=== PATIENT | female | born 1935 | race Caucasian/White ===

== ENCOUNTER 2017-01-01 00:07 | Inpatient (IN) | payer BC, MEDICARE ==
[2017-01-01] MEDS ORDERED: NOREPINEPHRINE 4 MG in SODIUM CHLORIDE 0.9% 250 ML IV SCH (00:30)
[2017-01-01] MEDS ORDERED: SODIUM CHLORIDE 0.9% 2,000 ML IV STA (00:31)
[2017-01-01] MEDS ORDERED: SODIUM CHLORIDE 0.9% 1,000 ML IV STA ×2 (00:32→01:42)
[2017-01-01 00:34] LABS: Glucose,Whole Blood 140 mg/dL (75-99)
[2017-01-01] MEDS ORDERED: ROCURONIUM BROMIDE 10 MG/ML 10 ML VIAL IV STA (00:34)
[2017-01-01] MEDS ORDERED: MIDAZOLAM (PF) 1 MG/ML 5 ML VIAL IV STA (00:34)
[2017-01-01 00:53] LABS: CH 27.2; HCT 42.3 % (34.0-46.0); HDW 3.36; HGB 13.9 gm/dL (11.4-16.0); Hypochromasia Moderate; MCH 29.1 pg (25.0-35.0); MCHC 32.9 g/dL (31.0-37.0); MCV 88.6 fL (80.0-100.0); Mean Platelet Volume 7.9; RBC 4.78 m/uL (3.80-5.40); RDW 14.1 % (11.5-15.5); WBC (Perox) 11.31
[2017-01-01 00:57] LABS: Calcium 7.4 mg/dL (8.4-10.2); Potassium 5.8 mmol/L (3.5-5.1); Total Bilirubin 0.6 mg/dL (0.2-1.3); Total Protein 5.5 g/dL (6.3-8.2)
[2017-01-01 00:58] LABS: Partial Thromboplastin Time 41.9 sec (22.0-30.0)
[2017-01-01 01:08] LABS: Prothrombin Time >130.0 sec (9.0-12.0)
[2017-01-01 01:11] LABS: INR >10.0 (<1.1)
[2017-01-01 01:17] LABS: Appearance,Urine Clear (Clear); Bilirubin,Urine Negative (Negative); Glucose,Urine (UA) Negative (Negative); Ketones,Urine Negative (Negative); Leukocyte Esterase,Urine Negative (Negative); Mucus,Urine Rare /hpf; Nitrite,Urine Negative (Negative); PH, Urine 5.5 (5.0-8.0); Particle Count 2856; Protein,Urine 1+ (Negative); RBC,Urine 1 /hpf (0-5); Specific Gravity,Urine 1.018 (1.001-1.035); UA Billing (MACRO vs. MICRO) MICRO; Urobilinogen,Urine <2.0 mg/dL (<2.0); WBC,Urine <1 /hpf (0-5)
[2017-01-01 01:18] LABS: Add Differential Manual Differential
[2017-01-01 01:22] LABS: Manual Review Performed; Nucleated Red Blood Cells 0 /100 WBC (0-0); Total Cells Counted 200
[2017-01-01 01:23] LABS: Crenated RBC Present; Toxic Granulation Present
--- NOTE | 2017-01-01 01:25 | XR ---
EXAM: XR Chest, 1 View. CLINICAL HISTORY: Reason: altered mental status TECHNIQUE: Frontal view of the chest. COMPARISON: No relevant prior studies available. FINDINGS: Lungs: There is pulmonary vascular congestion. Asymmetric left perihilar and left lower lobe infiltrate may reflect pulmonary edema or possible pneumonia. Pleural space: No evidence of pneumothorax. No significant pleural effusion. Heart: Heart size is within normal limits. Mediastinum: Unremarkable. Bones/joints: Old right lower rib fractures. Tubes, lines and devices: Endotracheal tube has its tip just above level of tahir. Left subclavian central venous catheter extends to region of right atrium. Additional line projects over lower cardiac silhouette extending superiorly from abdomen which may reflect overlying lead or possible line extending into the right atrium from inferior vena caval approach. IMPRESSION: Multiple lines and tubes as described in body of report. Pulmonary vascular congestion Left perihilar and lower lobe infiltrates may reflect developing pulmonary edema or possible pneumonia.
[2017-01-01] MEDS ORDERED: AZTREONAM 2 GM in SODIUM CHLORIDE 0.9% 100 ML IVPB STA (01:32)
[2017-01-01] MEDS ORDERED: LEVOFLOXACIN 750MG-D5W PMX 750 MG in DEXTROSE/WATER 1 150ML.BAG IVPB STA (01:32)
[2017-01-01 01:43] LABS: Troponin I 0.882 ng/mL (0.000-0.034)
[2017-01-01] MEDS ORDERED: PHYTONADIONE 2 MG in SODIUM CHLORIDE 0.9% 50 ML IVPB STA (01:53)
[2017-01-01 01:55] LABS: ABG Base Excess -15.4 mmol/L; ABG HCO3 13 mmol/L (21-25); ABG PCO2 47 mmHg (35-45); ABG PH 7.07 (7.35-7.45); ABG PO2 290 mmHg (83-108); ABG TCO2 14 mmol/L (19-24)
--- NOTE | 2017-01-01 02:47 | CT ---
EXAM: CT Head Without Intravenous Contrast. CLINICAL HISTORY: Reason: altered mental status TECHNIQUE: Axial computed tomography images of the head/brain without intravenous contrast. CTDI is 57.4 mGy and DLP is 1098.8 mGy-cm This CT exam was performed using one or more of the following dose reduction techniques: automated exposure control, adjustment of the mA and/or kV according to patient size, and/or use of iterative reconstruction technique. COMPARISON: No relevant prior studies available. FINDINGS: Brain: Generalized cerebral atrophy. Prominent chronic white matter ischemic changes. No evidence of acute cerebral infarction or intracranial hemorrhage. No abnormal extra-axial collections identified. Ventricles: Ventricles are of normal configuration without mass effect or midline shift. Bones/joints: No evidence of skull fracture Sinuses: Mild bilateral ethmoid sinus mucosal thickening and small amount of fluid in the left ethmoid sinus. Imaged sinuses are otherwise unremarkable. Mastoid air cells: Unremarkable as visualized. No mastoid effusion. Nasopharynx: There is intermediate to low density with scattered gas collections filling the posterior nasopharynx IMPRESSION: Cerebral atrophy and prominent chronic white matter ischemic changes. No evidence of acute intracranial abnormality. Mild bilateral ethmoid sinus disease. Heterogeneous density and scattered gas locules filling the posterior nasopharynx which is nonspecific and may reflect abundant retained secretions. Clinical correlation recommended.
--- NOTE | 2017-01-01 03:44 | CT ---
EXAM: CT Abdomen and Pelvis Without Intravenous Contrast. CLINICAL HISTORY: Reason: abnormal labs TECHNIQUE: Axial computed tomography images of the abdomen and pelvis without intravenous contrast. CTDI is 13.9 mGy and DLP is 658.3 mGy-cm This CT exam was performed using one or more of the following dose reduction techniques: automated exposure control, adjustment of the mA and/or kV according to patient size, and/or use of iterative reconstruction technique. COMPARISON: No relevant prior studies available. FINDINGS: Artifacts: CT is somewhat limited due to metallic/streak artifact and lack of oral and IV contrast enhancement. Lower thorax: Imaged lower thorax demonstrates findings suggestive of previous right mastectomy. There is minimal right pleural effusion. There is consolidative opacity and partial volume loss involving left lower lobe with associated small left pleural effusion. Mild inferior lingular subsegmental atelectasis or fibrotic scarring. ABDOMEN: Liver: Liver is of normal size. No definite focal hepatic abnormalities identified. Gallbladder and bile ducts: There is intermediate density within the gallbladder which may reflect gallbladder sludge. Suggestion of gallbladder wall thickening or small amount of pericholecystic fluid which may reflect cholecystitis. Correlation with gallbladder ultrasound recommended. No ductal dilation. Pancreas: Pancreas appears grossly normal, but is suboptimally visualized. Spleen: Unremarkable. No splenomegaly. Adrenals: No definite adrenal masses. Kidneys and ureters: No evidence of renal calculi or hydronephrosis. Stomach and bowel: Moderate dilatation of proximal small bowel loop in the left upper quadrant which is nonspecific and could reflect focal ileus. Early or partial small bowel obstruction are differential possibilities. Small bowel is otherwise of normal caliber. There is moderate gaseous distention of the right colon with no definite evidence of colonic obstruction. Note is made of a rectal catheter within the rectum. Scattered diverticula arise from the sigmoid without evidence of diverticulitis. Sigmoid colon is nondistended limiting colonic evaluation. Appendix: Appendix not identified. No definite evidence of appendicitis. PELVIS: Bladder: In the bladder is decompressed with indwelling bladder catheter. Reproductive: Unremarkable as visualized. ABDOMEN and PELVIS: Intraperitoneal space: Unremarkable. No free air. No significant fluid collection. Bones/joints: Severe L1 vertebral compression fracture which is of indeterminate age. Lower thoracic and lumbar spine degenerative changes. Soft tissues: Prominent subcutaneous soft tissue edematous changes involving the left buttocks which may reflect inflammatory changes/cellulitis. Vasculature: No evidence of abdominal aortic aneurysm. Lymph nodes: No definite evidence of lymphadenopathy. Tubes, lines and devices: Nasogastric tube extends to region of gastric body. IMPRESSION: Left lower lobe consolidative pulmonary opacity and partial volume loss which may reflect pneumonia, but cannot exclude postobstructive process. CT chest may be considered for further evaluation. Minimal right and small left pleural effusions. Evidence of gallbladder sludge with suggestion of gallbladder wall thickening or small amount of pericholecystic fluid raising possibility of cholecystitis. Correlation with gallbladder ultrasound recommended. Moderate dilatation of proximal small bowel loop in the left upper quadrant which may reflect focal ileus. Early or partial small bowel obstruction are differential considerations. Moderate distention of right colon with no definite evidence of colonic obstruction. Prominent subcutaneous soft tissue edematous changes involving left buttocks which may reflect cellulitis. Severe L1 vertebral compression fracture.
--- NOTE | 2017-01-01 04:48 | ED ---
Altered Mental Status HPI - General Chief Complaint: Altered Mental Status Stated Complaint: unresponsive Source: EMS Mode of arrival: EMS Limitations: altered mental status, physical limitation - History of Present Illness Initial Comments: This patient is an 81-year-old woman brought to be evaluated by EMS. History is only available from EMS as the patient is unresponsive. It is reported that the patient had not spoken with her family in about 3-4 days. Family phoned the police department to see if the patient could be checked. The airline pilot/first officer who went to the site found the patient see toilet, leaned over the next to it onto the bathtub. The patient was reportedly breathing but not responsive. EMS arrived and they transported the patient here. They have not received any response from the patient. On-site they found the patient to be hypotensive, bradycardic, tachypneic. They placed patient on a nasal cannula oxygen, attempted IVs but unsuccessful and started an IO line. As the patient was not responding they also placed external pacer pads. On arrival the patient is unchanged. MD Complaint: altered mental status, decreased responsiveness -: unknown Severity: severe Consistency of Symptoms: unknown Context: unknown Treatments Prior to Arrival: IV fluid, oxygen - Related Data Home Medications Medication Instructions Recorded Confirmed Diazepam [Valium] 5 mg PO HS PRN 06/24/14 01/01/17 Atenolol [Atenolol] 25 mg PO DAILY 01/01/17 01/01/17 Flecainide Acetate [Flecainide 50 mg PO Q12H 01/01/17 01/01/17 Acetate] Omeprazole 20 mg PO DAILY 01/01/17 01/01/17 Warfarin Sodium [Warfarin Sodium] 2.5 mg PO DAILY 01/01/17 01/01/17 metroNIDAZOLE [Flagyl] 500 mg PO TID 01/01/17 01/01/17 Allergies Allergy/AdvReac Type Severity Reaction Status Date / Time aspirin Allergy Abdominal Verified 01/01/17 00:23 Pain Penicillins Allergy Rash/Hives Verified 01/01/17 00:23 Review of Systems ROS Statement: Those systems with pertinent positive or pertinent negative responses have been documented in the HPI. ROS Other: All systems not noted in ROS Statement are negative. Limitations: ROS unobtainable due to patients medical condition Past Medical History Past Medical History: Cancer, GERD/Reflux, Hypertension, Mitral Valve Prolapse ( MVP) Additional Past Medical History / Comment(s): POLIO AGE 15, BREAST CANCER, VARICOSE VEINS History of Any Multi-Drug Resistant Organisms: None Reported Past Surgical History: Adenoidectomy, Breast Surgery, Hysterectomy, Tonsillectomy Past Anesthesia/Blood Transfusion Reactions: Motion Sickness, Postoperative Nausea & Vomiting (PONV) Past Psychological History: No Psychological Hx Reported Smoking Status: Never smoker Past Alcohol Use History: Unable to Obtain Past Drug Use History: Unable to Obtain - Past Family History Mother Family Medical History: Cancer Additional Family Medical History / Comment(s): COLON CANCER Brother(s) Family Medical History: Deep Vein Thrombosis (DVT) Additional Family Medical History / Comment(s): PULMONARY EMBOLISM General Exam Limitations: physical limitation General appearance: obtunded, in distress Head exam: Present: atraumatic, normocephalic, normal inspection Eye exam: Present: other (There is corneal clouding) Pupils: Present: miosis ENT exam: Present: mucous membranes dry, other (Jaw was clenched) Neck exam: Present: other (No evidence of trauma. No step-off or deformity). Absent: tenderness, meningismus Respiratory exam: Present: respiratory distress, rhonchi, other (The patient is making faint grunting respirations. Rate is tachypneic. Inspection of the chest wall reveals old mastectomy scar.). Absent: decreased breath sounds, prolonged expiratory Cardiovascular Exam: Present: bradycardia, other (Barely audible cardiac sounds) . Absent: systolic murmur, diastolic murmur, rubs, gallop GI/Abdominal exam: Present: soft. Absent: distended, tenderness, guarding, rebound, mass Extremities exam: Present: other (There is an intraosseous line the left proximal tibia). Absent: tenderness, normal capillary refill (Delayed cap refill), pedal edema Back exam: Present: normal inspection Neurological exam: Present: altered, other (GCS is 4. (E=1, V=2, M=1) there were no corneal reflex or other cranial nerve reflexes on arrival. No deep tendon reflexes.). Absent: alert Skin exam: Present: pallor, other (Skin is cool and mottled. There are stage III decubitus ulcers the back of the patient's legs consistent with being seated on the commode for prolonged period). Absent: normal color Course Vital Signs 01/01/17 01/01/17 01/01/17 00:09 00:10 00:25 Temperature 80 F L Pulse Rate 67 70 Respiratory 12 12 12 Rate Blood Pressure O2 Sat by Pulse Oximetry 01/01/17 01/01/17 01/01/17 00:36 00:37 00:42 Temperature 80 F L Pulse Rate 70 46 L 70 Respiratory 12 14 14 Rate Blood Pressure 81/44 178/70 O2 Sat by Pulse 97 99 Oximetry 01/01/17 01/01/17 01/01/17 00:50 00:53 01:02 Temperature 80.1 F L Pulse Rate 50 L 50 L 70 Respiratory 14 14 14 Rate Blood Pressure 72/50 176/68 172/63 O2 Sat by Pulse 100 99 95 Oximetry 01/01/17 01/01/17 01/01/17 01:09 01:17 01:28 Temperature Pulse Rate 70 70 68 Respiratory 14 14 14 Rate Blood Pressure 193/76 126/51 92/42 O2 Sat by Pulse 99 97 99 Oximetry 01/01/17 01/01/17 01/01/17 01:37 01:40 01:49 Temperature 81.1 F L Pulse Rate 70 70 72 Respiratory 14 14 14 Rate Blood Pressure 74/30 74/30 69/32 O2 Sat by Pulse 98 98 99 Oximetry 01/01/17 01/01/17 01/01/17 01:50 01:54 01:59 Temperature 82 F L 83.0 F L 83.0 F L Pulse Rate 73 72 74 Respiratory 14 14 14 Rate Blood Pressure 69/32 78/40 95/53 O2 Sat by Pulse 100 99 99 Oximetry 01/01/17 01/01/17 01/01/17 02:07 02:09 02:20 Temperature 83.1 F L 83.4 F L 86.2 F L Pulse Rate 77 78 80 Respiratory 14 14 14 Rate Blood Pressure 99/55 103/54 104/51 O2 Sat by Pulse 99 99 98 Oximetry 01/01/17 01/01/17 01/01/17 02:42 02:54 03:12 Temperature 85 F L 86 F L 87 F L Pulse Rate 82 82 84 Respiratory 14 14 14 Rate Blood Pressure 93/65 105/46 96/46 O2 Sat by Pulse 99 99 98 Oximetry 01/01/17 01/01/17 01/01/17 03:27 03:36 03:50 Temperature 87.6 F L 87.9 F L Pulse Rate 59 L 61 62 Respiratory 14 14 14 Rate Blood Pressure 105/45 96/42 83/39 O2 Sat by Pulse 98 98 97 Oximetry 01/01/17 01/01/17 01/01/17 04:14 04:21 04:40 Temperature 89.6 F L 90.4 F L Pulse Rate 64 64 67 Respiratory 14 14 14 Rate Blood Pressure 74/37 80/35 79/37 O2 Sat by Pulse 97 97 97 Oximetry 01/01/17 05:09 Temperature 91.1 F L Pulse Rate 69 Respiratory 14 Rate Blood Pressure 90/41 O2 Sat by Pulse 97 Oximetry Procedures - Central Line Placement Left SC Consent Obtained: emergent situation Time Out Performed: Yes Patient Placed on Monitor/Pulse Ox: Yes Prep: mask, gown, gloves Central Line Prep: sterile drapes applied Local Anesthesia Used: Lidocaine 1% Central Line Lumen Inserted: triple Bloods Obtained for Lab: Yes Central Line Position: good blood return, all ports aspirated, flushed, capped, sutured in place with 2-0 silk Dressing Applied: Tegaderm Post Procedure X-Ray: tip of catheter in good position Patient Tolerated Procedure: no complications Complications: none - Intubation Sedative: Versed Paralytic: Rocuronium Laryngoscope: Tomer Size: 3 ET Tube Size: 8 Tube Placement Confirmation: visualized tube passing through cords, equal breath sounds bilaterally, no breath sounds over epigastrium, confirmation by capnometry Patient Tolerated Procedure: no complications Intubation Complications: none - Sepsis Sepsis Focused Exam #1 Sepsis Focused Exam Date: 01/01/17 Sepsis Focused Exam Time: 03:10 Capillary Refill: < 2 Seconds: Fingers, > 2 Seconds: Toes Peripheral Pulses: Weak: Radial (R), Radial (L) Skin Color: Normal for Patient Respiratory Exam: rhonchi Cardiovascular Exam: regular rate, normal heart sounds Medical Decision Making - Medical Decision Making This patient is an 81-year-old woman brought in by EMS after being found unresponsive. On arrival the patient is bradycardic, requiring pacing and hypotensive as well as in respiratory failure. The patient's jaw was tightly clenched and we are not able to intubate. To facilitate emergency resuscitation , as well as for the possibility of administering multiple medications including pressors started a central line in the left subclavian area, see the note. This procedure went without complication. I was also able to draw blood for labs. Patient was administered medication for RSI and then intubated for respiratory failure. Please see the note. This procedure went without complication. Fluid resuscitation continued, pressors added to support her pressure, and external pacing continued. IV antibiotics for presumed sepsis ordered. As the patient's labs started to come back, discussed the case with the admitting physician and with the external grinder tender on-call and there treatment recommendations are incorporated. The patient is given vitamin K for the INR greater than 10. At this point there is no evidence of bleeding. The patient did go for CT of the brain, as well as the abdomen and pelvis. - Lab Data Result diagrams: 01/01/17 04:55 01/01/17 04:55 Lab Results 01/01/17 01/01/17 01/01/17 Range/Units 00:14 00:20 00:20 WBC 11.0 H (3.8-10.6) k/uL RBC 4.78 (3.80-5.40) m/uL Hgb 13.9 (11.4-16.0) gm/dL Hct 42.3 (34.0-46.0) % MCV 88.6 (80.0-100.0) fL MCH 29.1 (25.0-35.0) pg MCHC 32.9 (31.0-37.0) g/dL RDW 14.1 (11.5-15.5) % Plt Count 293 (150-450) k/uL Neutrophils % (Manual) 77.0 % Band Neutrophils % 16.0 % Lymphocytes % (Manual) 5.0 % Monocytes % (Manual) 2.0 % Neutrophils # (Manual) 10.2 H (1.3-7.7) k/uL Lymphocytes # (Manual) 0.6 L (1.0-4.8) k/uL Monocytes # (Manual) 0.2 (0-1.0) k/uL Nucleated RBCs 0 (0-0) /100 WBC Manual Slide Review Performed Toxic Granulation Present Hypochromasia Moderate Poikilocytosis (manual Present Crenated Cell Present PT (9.0-12.0) sec INR (<1.1) APTT (22.0-30.0) sec Sample Site ABG pH (7.35-7.45) ABG pCO2 (35-45) mmHg ABG pO2 (83-108) mmHg ABG HCO3 (21-25) mmol/L ABG Total CO2 (19-24) mmol/L ABG O2 Saturation (94-97) % ABG Base Excess mmol/L FiO2 % Sodium (137-145) mmol/L Potassium (3.5-5.1) mmol/L Chloride (98-107) mmol/L Carbon Dioxide (22-30) mmol/L Anion Gap mmol/L BUN (7-17) mg/dL Creatinine (0.52-1.04) mg/dL Est GFR (MDRD) Af Amer (>60 ml/min/1.73 sqM) Est GFR (MDRD) Non-Af (>60 ml/min/1.73 sqM) Glucose (74-99) mg/dL POC Glucose (mg/dL) 140 H (75-99) mg/dL POC Glu Matchbook Assembler ID Jonhitlolita Cecille Plasma Lactic Acid [place] (0.7-2.0) mmol/L Calcium (8.4-10.2) mg/dL Total Bilirubin (0.2-1.3) mg/dL AST (14-36) U/L ALT (9-52) U/L Alkaline Phosphatase (38-126) U/L Ammonia (<30) umol/L Total Creatine Kinase 59098 H (30-135) U/L CK-MB (CK-2) 316.0 H* (0.0-2.4) ng/mL CK-MB (CK-2) Rel Index Troponin I 0.882 H* (0.000-0.034) ng/mL Total Protein (6.3-8.2) g/dL Albumin (3.5-5.0) g/dL Urine Color Urine Appearance (Clear) Urine pH (5.0-8.0) Ur Specific [place] (1.001-1.035) Urine Protein (Negative) Urine Glucose (UA) (Negative) Urine Ketones (Negative) Urine Blood (Negative) Urine Nitrite (Negative) Urine Bilirubin (Negative) Urine Urobilinogen (<2.0) mg/dL Ur Leukocyte Esterase (Negative) Urine RBC (0-5) /hpf Urine WBC (0-5) /hpf Urine Mucus (None) /hpf Urine Opiates Screen (NotDetected) Ur Oxycodone Screen (NotDetected) Urine Methadone Screen (NotDetected) Ur Propoxyphene Screen (NotDetected) Ur Barbiturates Screen (NotDetected) U Tricyclic Antidepress (NotDetected) Ur Phencyclidine Scrn (NotDetected) Ur Amphetamines Screen (NotDetected) U Methamphetamines Scrn (NotDetected) U Benzodiazepines Scrn (NotDetected) Urine Cocaine Screen (NotDetected) U Marijuana (THC) Screen (NotDetected) 01/01/17 01/01/17 01/01/17 Range/Units 00:20 00:20 00:20 WBC (3.8-10.6) k/uL RBC (3.80-5.40) m/uL Hgb (11.4-16.0) gm/dL Hct (34.0-46.0) % MCV (80.0-100.0) fL MCH (25.0-35.0) pg MCHC (31.0-37.0) g/dL RDW (11.5-15.5) % Plt Count (150-450) k/uL Neutrophils % (Manual) % Band Neutrophils % % Lymphocytes % (Manual) % Monocytes % (Manual) % Neutrophils # (Manual) (1.3-7.7) k/uL Lymphocytes # (Manual) (1.0-4.8) k/uL Monocytes # (Manual) (0-1.0) k/uL Nucleated RBCs (0-0) /100 WBC Manual Slide Review Toxic Granulation Hypochromasia Poikilocytosis (manual Crenated Cell PT >130.0 H (9.0-12.0) sec INR >10.0 H* (<1.1) APTT 41.9 H (22.0-30.0) sec Sample Site ABG pH (7.35-7.45) ABG pCO2 (35-45) mmHg ABG pO2 (83-108) mmHg ABG HCO3 (21-25) mmol/L ABG Total CO2 (19-24) mmol/L ABG O2 Saturation (94-97) % ABG Base Excess mmol/L FiO2 % Sodium 134 L (137-145) mmol/L Potassium 5.8 H (3.5-5.1) mmol/L Chloride 102 (98-107) mmol/L Carbon Dioxide 15 L (22-30) mmol/L Anion Gap 17 mmol/L BUN 65 H (7-17) mg/dL Creatinine 3.10 H (0.52-1.04) mg/dL Est GFR (MDRD) Af Amer 18 (>60 ml/min/1.73 sqM) Est GFR (MDRD) Non-Af 14 (>60 ml/min/1.73 sqM) Glucose 132 H (74-99) mg/dL POC Glucose (mg/dL) (75-99) mg/dL POC Glu Matchbook Assembler ID Plasma Lactic Acid [place] 7.1 H* (0.7-2.0) mmol/L Calcium 7.4 L (8.4-10.2) mg/dL Total Bilirubin 0.6 (0.2-1.3) mg/dL AST 652 H (14-36) U/L ALT 211 H (9-52) U/L Alkaline Phosphatase 103 (38-126) U/L Ammonia 49 H (<30) umol/L Total Creatine Kinase (30-135) U/L CK-MB (CK-2) (0.0-2.4) ng/mL CK-MB (CK-2) Rel Index Troponin I (0.000-0.034) ng/mL Total Protein 5.5 L (6.3-8.2) g/dL Albumin 2.4 L (3.5-5.0) g/dL Urine Color Urine Appearance (Clear) Urine pH (5.0-8.0) Ur Specific [place] (1.001-1.035) Urine Protein (Negative) Urine Glucose (UA) (Negative) Urine Ketones (Negative) Urine Blood (Negative) Urine Nitrite (Negative) Urine Bilirubin (Negative) Urine Urobilinogen (<2.0) mg/dL Ur Leukocyte Esterase (Negative) Urine RBC (0-5) /hpf Urine WBC (0-5) /hpf Urine Mucus (None) /hpf Urine Opiates Screen (NotDetected) Ur Oxycodone Screen (NotDetected) Urine Methadone Screen (NotDetected) Ur Propoxyphene Screen (NotDetected) Ur Barbiturates Screen (NotDetected) U Tricyclic Antidepress (NotDetected) Ur Phencyclidine Scrn (NotDetected) Ur Amphetamines Screen (NotDetected) U Methamphetamines Scrn (NotDetected) U Benzodiazepines Scrn (NotDetected) Urine Cocaine Screen (NotDetected) U Marijuana (THC) Screen (NotDetected) 01/01/17 01/01/17 Range/Units 00:50 01:35 WBC (3.8-10.6) k/uL RBC (3.80-5.40) m/uL Hgb (11.4-16.0) gm/dL Hct (34.0-46.0) % MCV (80.0-100.0) fL MCH (25.0-35.0) pg MCHC (31.0-37.0) g/dL RDW (11.5-15.5) % Plt Count (150-450) k/uL Neutrophils % (Manual) % Band Neutrophils % % Lymphocytes % (Manual) % Monocytes % (Manual) % Neutrophils # (Manual) (1.3-7.7) k/uL Lymphocytes # (Manual) (1.0-4.8) k/uL Monocytes # (Manual) (0-1.0) k/uL Nucleated RBCs (0-0) /100 WBC Manual Slide Review Toxic Granulation Hypochromasia Poikilocytosis (manual Crenated Cell PT (9.0-12.0) sec INR (<1.1) APTT (22.0-30.0) sec Sample Site rrad ABG pH 7.07 L* (7.35-7.45) ABG pCO2 47 H (35-45) mmHg ABG pO2 290 H (83-108) mmHg ABG HCO3 13 L (21-25) mmol/L ABG Total CO2 14 L (19-24) mmol/L ABG O2 Saturation 100.0 H (94-97) % ABG Base Excess -15.4 mmol/L FiO2 100 % Sodium (137-145) mmol/L Potassium (3.5-5.1) mmol/L Chloride (98-107) mmol/L Carbon Dioxide (22-30) mmol/L Anion Gap mmol/L BUN (7-17) mg/dL Creatinine (0.52-1.04) mg/dL Est GFR (MDRD) Af Amer (>60 ml/min/1.73 sqM) Est GFR (MDRD) Non-Af (>60 ml/min/1.73 sqM) Glucose (74-99) mg/dL POC Glucose (mg/dL) (75-99) mg/dL POC Glu Matchbook Assembler ID Plasma Lactic Acid [place] (0.7-2.0) mmol/L Calcium (8.4-10.2) mg/dL Total Bilirubin (0.2-1.3) mg/dL AST (14-36) U/L ALT (9-52) U/L Alkaline Phosphatase (38-126) U/L Ammonia (<30) umol/L Total Creatine Kinase (30-135) U/L CK-MB (CK-2) (0.0-2.4) ng/mL CK-MB (CK-2) Rel Index Troponin I (0.000-0.034) ng/mL Total Protein (6.3-8.2) g/dL Albumin (3.5-5.0) g/dL Urine Color Yellow Urine Appearance Clear (Clear) Urine pH 5.5 (5.0-8.0) Ur Specific [place] 1.018 (1.001-1.035) Urine Protein 1+ H (Negative) Urine Glucose (UA) Negative (Negative) Urine Ketones Negative (Negative) Urine Blood Moderate H (Negative) Urine Nitrite Negative (Negative) Urine Bilirubin Negative (Negative) Urine Urobilinogen <2.0 (<2.0) mg/dL Ur Leukocyte Esterase Negative (Negative) Urine RBC 1 (0-5) /hpf Urine WBC <1 (0-5) /hpf Urine Mucus Rare H (None) /hpf Urine Opiates Screen Not Detected (NotDetected) Ur Oxycodone Screen Not Detected (NotDetected) Urine Methadone Screen Not Detected (NotDetected) Ur Propoxyphene Screen Not Detected (NotDetected) Ur Barbiturates Screen Not Detected (NotDetected) U Tricyclic Antidepress Not Detected (NotDetected) Ur Phencyclidine Scrn Not Detected (NotDetected) Ur Amphetamines Screen Not Detected (NotDetected) U Methamphetamines Scrn Not Detected (NotDetected) U Benzodiazepines Scrn Detected H (NotDetected) Urine Cocaine Screen Not Detected (NotDetected) U Marijuana (THC) Screen Not Detected (NotDetected) - EKG Data -: EKG Interpreted by Me EKG shows normal: QRS complexes (Widened) Interpretation: other (The patient's initial EKG showed a wide complex QRS rhythm with a rate in the 40s. No more interpretation was possible and that given the artifact caused by the external pacer ) 01/01/17 06:27 The patient's second EKG showed a wide complex rhythm with a rate approximately 83 bpm and manifesting a left bundle branch block pattern. Critical Care Time Critical Care Time: Yes (75 minutes) Disposition Clinical Impression: Altered mental status, Respiratory failure with hypercapnia, Lactic acidosis, Acute renal failure, Elevated troponin I level, Elevated transaminase measurement, Elevated INR, Rhabdomyolysis, Hypothermia, Hypotension, Pneumonia, Severe sepsis Disposition: ADMITTED IP TO THIS [facility] Condition: Critical
[2017-01-01] MEDS ORDERED: NOREPINEPHRINE 16 MG in SODIUM CHLORIDE 0.9% 250 ML IV SCH (05:15)
[2017-01-01 05:27] LABS: Total Bilirubin 0.5 mg/dL (0.2-1.3)
[2017-01-01 05:33] LABS: CH 27.7; CHCM 31.7; HDW 3.35; HGB 13.4 gm/dL (11.4-16.0); Hypochromasia Moderate; Immature Gran Flag Moderate; MCHC 31.8 g/dL (31.0-37.0); Mean Platelet Volume 7.8; RBC 4.78 m/uL (3.80-5.40); RDW 14.5 % (11.5-15.5); WBC 12.4 k/uL (3.8-10.6); WBC (Perox) 13.01
[2017-01-01 05:41] LABS: Calcium 6.3 mg/dL (8.4-10.2)
[2017-01-01] MEDS ORDERED: CALCIUM GLUCONATE 1,000 MG in SODIUM CHLORIDE 0.9% 100 ML IVPB ONE (05:43)
[2017-01-01 05:53] LABS: Add Differential Manual Differential
[2017-01-01 05:59] LABS: Manual Review Performed; Nucleated Red Blood Cells 0 /100 WBC (0-0); Total Cells Counted 200
[2017-01-01 06:00] LABS: Crenated RBC Present
[2017-01-01 06:01] LABS: Glucose,Whole Blood 82 mg/dL (75-99)
[2017-01-01] MEDS ORDERED: SODIUM BICARB 8.4% 50 ML SYR (1 MEQ/ML) ONE (07:36)
[2017-01-01] MEDS ORDERED: HYDROCORTISONE SUCCINATE 100 MG/2 ML VIAL IV STA (07:44)
[2017-01-01] MEDS ORDERED: SODIUM CHLORIDE 0.9% 1,000 ML IV ONE (07:46)
[2017-01-01 08:24] LABS: ABG PCO2 36 mmHg (35-45); ABG PH 7.22 (7.35-7.45)
[2017-01-01 08:25] LABS: ABG HCO3 14 mmol/L (21-25); ABG PO2 363 mmHg (83-108); ABG TCO2 15 mmol/L (19-24)
[2017-01-01 08:26] LABS: ABG Base Excess -11.9 mmol/L
[2017-01-01] MEDS ORDERED: FAMOTIDINE 20 MG/2 ML VIAL IV SCH (09:00)
[2017-01-01] MEDS ORDERED: IPRATROPIUM-ALBUTEROL 3 ML NEB INHALATION PRN (10:23)
[2017-01-01] MEDS ORDERED: CHLORHEXIDINE GLUCONATE 15 ML CUP MUCOUS MEM SCH (10:30)
[2017-01-01 10:33] VITALS: BMI 27.6
--- NOTE | 2017-01-01 10:54 | P.CONS ---
History of Present Illness - Reason for Consult Consult date: 01/01/17 Sepsis - History of Present Illness This is an 81-year-old female who was apparently found at her home on the toilet unresponsive hypotensive, bradycardic and tachypneic. She had noted mottling at the time and was brought into the hospital by EMS. Patient apparently had not been heard from for 3-4 days prior to this. In the emergency center she was noted to not have reflexes she has a stage III decubitus ulcer in the back of her legs, lower back and buttocks. Central line was placed and patient was intubated. She did have a temporary pacemaker for heart rate running in the 30s. She presented with severe acidosis, electrolyte abnormalities, acute renal failure, rhabdomyolysis, elevated liver function tests. She underwent a chest x-ray that showed pulmonary vascular congestion, left perihilar and lower lobe infiltrates may reflect pulmonary edema or possible pneumonia. CAT scan of the abdomen and pelvis showed left lower lobe consolidation, possible cholecystitis, possible focal ileus or some partial small bowel obstruction, cellulitis of the left buttocks, severe L1 compression fracture. She has continued to be hypotensive despite IV fluid resuscitation and started on norepinephrine and admitted to the intensive care unit. INR was also elevated at greater than 10 and she is status post vitamin K. No urine output this morning. Consults requested with percussion instructor, general surgery, nephrology and cardiology. Only living relative is her brother that lives an hour away and has no transportation until this evening. Review of Systems ROS unobtainable: due to endotracheal tube, due to mental status Past Medical History Past Medical History: Cancer, GERD/Reflux, Hypertension, Mitral Valve Prolapse ( MVP) Additional Past Medical History / Comment(s): POLIO AGE 15, BREAST CANCER, VARICOSE VEINS History of Any Multi-Drug Resistant Organisms: None Reported Past Surgical History: Adenoidectomy, Breast Surgery, Hysterectomy, Tonsillectomy Past Anesthesia/Blood Transfusion Reactions: Motion Sickness, Postoperative Nausea & Vomiting (PONV) Past Psychological History: No Psychological Hx Reported Smoking Status: Never smoker Past Alcohol Use History: Unable to Obtain Past Drug Use History: Unable to Obtain - Past Family History Mother Family Medical History: Cancer Additional Family Medical History / Comment(s): COLON CANCER Brother(s) Family Medical History: Deep Vein Thrombosis (DVT) Additional Family Medical History / Comment(s): PULMONARY EMBOLISM Medications and Allergies Home Medications Medication Instructions Recorded Confirmed Type Diazepam [Valium] 5 mg PO HS PRN 06/24/14 01/01/17 History Atenolol [Atenolol] 25 mg PO DAILY 01/01/17 01/01/17 History Flecainide Acetate [Flecainide 50 mg PO Q12H 01/01/17 01/01/17 History Acetate] Omeprazole 20 mg PO DAILY 01/01/17 01/01/17 History Warfarin Sodium [Warfarin Sodium] 2.5 mg PO DAILY 01/01/17 01/01/17 History metroNIDAZOLE [Flagyl] 500 mg PO TID 01/01/17 01/01/17 History Allergies Allergy/AdvReac Type Severity Reaction Status Date / Time aspirin Allergy Abdominal Verified 01/01/17 08:18 Pain Penicillins Allergy Rash/Hives Verified 01/01/17 08:18 Physical Exam Vitals: Vital Signs Temp Pulse Resp BP Pulse Ox 01/01/17 07:45 94 12 143/68 99 01/01/17 07:30 96 29 H 98 01/01/17 07:15 93 31 H 92/40 99 01/01/17 07:00 100 30 H 144/65 99 01/01/17 06:45 99 33 H 100 01/01/17 06:30 90 29 H 115/52 99 01/01/17 06:20 82 16 99 01/01/17 06:10 79 16 99 01/01/17 06:00 92.4 F L 76 16 99 01/01/17 05:50 74 23 100 01/01/17 05:09 91.1 F L 69 14 90/41 97 01/01/17 04:40 90.4 F L 67 14 79/37 97 Intake and Output 12/31/16 01/01/17 01/01/17 22:59 06:59 14:59 Intake Total 34.375 Balance 34.375 Intake: Intake, IV Titration 34.375 Amount Norepinephrine 4 mg In 34.375 Sodium Chloride 0.9% 250 ml @ Titrate IV .Q0M [facility] Rx#:[id number] Gen: This is an 81-year-old female. She is intubated and on mechanical ventilation in the ICU bed. She appears to be comfortable. She is not on sedation. She is not able to follow commands. HEENT: Head is atraumatic, normocephalic. Pupils equal, round. Sclerae is anicteric. Mucous membranes of the mouth appear to be intact what can be seen. ET and orogastric tube in place. NECK: Supple. No lymphadenopathy. No thyromegaly. LUNGS: Clear to auscultation. No wheezes or rhonchi. No intercostal retractions. Right-sided mastectomy noted. HEART: Weak heart sounds. No distinct murmur. Unable to palpate radial pulses. Blood pressure is being obtained by Doppler. ABDOMEN: Soft. Bowel sounds are present. No masses. No tenderness. EXTREMITIES: Stage III decubitus ulcers to the back of the patient's legs, buttocks area and lower back. Please see nursing documentation for details. Dressing in place to the left mid pretibial area where an intraosseous line had been placed. Trace pedal edema. Skin lesion to noted to the left forearm and left upper arm. Bilateral feet are dusky. NEUROLOGICAL: Patient is unresponsive. Results Results: Laboratory Results WBC 12.4 k/uL (3.8-10.6) H 01/01/17 04:55 RBC 4.78 m/uL (3.80-5.40) 01/01/17 04:55 Hgb 13.4 gm/dL (11.4-16.0) 01/01/17 04:55 Hct 42.0 % (34.0-46.0) 01/01/17 04:55 MCV 88.0 fL (80.0-100.0) 01/01/17 04:55 MCH 28.0 pg (25.0-35.0) 01/01/17 04:55 MCHC 31.8 g/dL (31.0-37.0) 01/01/17 04:55 RDW 14.5 % (11.5-15.5) 01/01/17 04:55 Plt Count 277 k/uL (150-450) 01/01/17 04:55 Neutrophils % (Manual) 70.0 % 01/01/17 04:55 Band Neutrophils % 25.0 % 01/01/17 04:55 Lymphocytes % (Manual) 4.0 % 01/01/17 04:55 Monocytes % (Manual) 2.0 % 01/01/17 00:20 Metamyelocytes % 1.0 % 01/01/17 04:55 Neutrophils # (Manual) 11.8 k/uL (1.3-7.7) H 01/01/17 04:55 Lymphocytes # (Manual) 0.5 k/uL (1.0-4.8) L 01/01/17 04:55 Monocytes # (Manual) 0.2 k/uL (0-1.0) 01/01/17 00:20 Nucleated RBCs 0 /100 WBC (0-0) 01/01/17 04:55 Differential Comment 01/01/17 04:55 Manual Slide Review Performed 01/01/17 04:55 Toxic Granulation Present 01/01/17 00:20 Hypochromasia Moderate 01/01/17 04:55 Poikilocytosis (manual Present 01/01/17 04:55 Crenated Cell Present 01/01/17 04:55 PT >130.0 sec (9.0-12.0) H 01/01/17 00:20 INR >10.0 (<1.1) H* 01/01/17 00:20 APTT 41.9 sec (22.0-30.0) H 01/01/17 00:20 Sample Site calos 01/01/17 07:28 ABG pH 7.22 (7.35-7.45) L 01/01/17 07:28 ABG pCO2 36 mmHg (35-45) 01/01/17 07:28 ABG pO2 363 mmHg (83-108) H 01/01/17 07:28 ABG HCO3 14 mmol/L (21-25) L 01/01/17 07:28 ABG Total CO2 15 mmol/L (19-24) L 01/01/17 07:28 ABG O2 Saturation 100.0 % (94-97) H 01/01/17 07:28 ABG Base Excess -11.9 mmol/L 01/01/17 07:28 FiO2 100 % 01/01/17 07:28 Sodium 134 mmol/L (137-145) L 01/01/17 04:55 Potassium 6.0 mmol/L (3.5-5.1) H 01/01/17 04:55 Chloride 107 mmol/L (98-107) 01/01/17 04:55 Carbon Dioxide 16 mmol/L (22-30) L 01/01/17 04:55 Anion Gap 11 mmol/L 01/01/17 04:55 BUN 62 mg/dL (7-17) H 01/01/17 04:55 Creatinine 2.70 mg/dL (0.52-1.04) H 01/01/17 04:55 Est GFR (MDRD) Af Amer 21 (>60 ml/min/1.73 sqM) 01/01/17 04:55 Est GFR (MDRD) Non-Af 17 (>60 ml/min/1.73 sqM) 01/01/17 04:55 Glucose 111 mg/dL (74-99) H 01/01/17 04:55 POC Glucose (mg/dL) 82 mg/dL (75-99) 01/01/17 05:59 POC Glu Medical Sonographer Pamela Vitale 01/01/17 05:59 Plasma Lactic Acid [place] 2.4 mmol/L (0.7-2.0) H* 01/01/17 04:55 Calcium 6.3 mg/dL (8.4-10.2) L* 01/01/17 04:55 Total Bilirubin 0.5 mg/dL (0.2-1.3) 01/01/17 04:55 AST 731 U/L (14-36) H 01/01/17 04:55 ALT 235 U/L (9-52) H 01/01/17 04:55 Alkaline Phosphatase 119 U/L (38-126) 01/01/17 04:55 Ammonia 49 umol/L (<30) H 01/01/17 00:20 Total Creatine Kinase 05680 U/L (30-135) H 01/01/17 00:20 CK-MB (CK-2) 316.0 ng/mL (0.0-2.4) H* 01/01/17 00:20 CK-MB (CK-2) Rel Index 01/01/17 00:20 Troponin I 0.876 ng/mL (0.000-0.034) H* 01/01/17 04:55 Total Protein 5.0 g/dL (6.3-8.2) L 01/01/17 04:55 Albumin 2.1 g/dL (3.5-5.0) L 01/01/17 04:55 Urine Color Yellow 01/01/17 00:50 Urine Appearance Clear (Clear) 01/01/17 00:50 Urine pH 5.5 (5.0-8.0) 01/01/17 00:50 Ur Specific [place] 1.018 (1.001-1.035) 01/01/17 00:50 Urine Protein 1+ (Negative) H 01/01/17 00:50 Urine Glucose (UA) Negative (Negative) 01/01/17 00:50 Urine Ketones Negative (Negative) 01/01/17 00:50 Urine Blood Moderate (Negative) H 01/01/17 00:50 Urine Nitrite Negative (Negative) 01/01/17 00:50 Urine Bilirubin Negative (Negative) 01/01/17 00:50 Urine Urobilinogen <2.0 mg/dL (<2.0) 01/01/17 00:50 Ur Leukocyte Esterase Negative (Negative) 01/01/17 00:50 Urine RBC 1 /hpf (0-5) 01/01/17 00:50 Urine WBC <1 /hpf (0-5) 01/01/17 00:50 Urine Mucus Rare /hpf (None) H 01/01/17 00:50 Urine Opiates Screen Not Detected (NotDetected) 01/01/17 00:50 Ur Oxycodone Screen Not Detected (NotDetected) 01/01/17 00:50 Urine Methadone Screen Not Detected (NotDetected) 01/01/17 00:50 Ur Propoxyphene Screen Not Detected (NotDetected) 01/01/17 00:50 Ur Barbiturates Screen Not Detected (NotDetected) 01/01/17 00:50 U Tricyclic Antidepress Not Detected (NotDetected) 01/01/17 00:50 Ur Phencyclidine Scrn Not Detected (NotDetected) 01/01/17 00:50 Ur Amphetamines Screen Not Detected (NotDetected) 01/01/17 00:50 U Methamphetamines Scrn Not Detected (NotDetected) 01/01/17 00:50 U Benzodiazepines Scrn Detected (NotDetected) H 01/01/17 00:50 Urine Cocaine Screen Not Detected (NotDetected) 01/01/17 00:50 U Marijuana (THC) Screen Not Detected (NotDetected) 01/01/17 00:50 CBC & Chem 7: 01/01/17 04:55 01/01/17 04:55 Labs: Abnormal Lab Results - Last 24 Hours (Table) 01/01/17 01/01/17 01/01/17 Range/Units 04:55 04:55 04:55 WBC 12.4 H (3.8-10.6) k/uL Neutrophils # (Manual) 11.8 H (1.3-7.7) k/uL Lymphocytes # (Manual) 0.5 L (1.0-4.8) k/uL ABG pH (7.35-7.45) ABG pO2 (83-108) mmHg ABG HCO3 (21-25) mmol/L ABG Total CO2 (19-24) mmol/L ABG O2 Saturation (94-97) % Sodium 134 L (137-145) mmol/L Potassium 6.0 H (3.5-5.1) mmol/L Carbon Dioxide 16 L (22-30) mmol/L BUN 62 H (7-17) mg/dL Creatinine 2.70 H (0.52-1.04) mg/dL Glucose 111 H (74-99) mg/dL Plasma Lactic Acid Parish (0.7-2.0) mmol/L Calcium 6.3 L* (8.4-10.2) mg/dL AST 731 H (14-36) U/L ALT 235 H (9-52) U/L Troponin I 0.876 H* (0.000-0.034) ng/mL Total Protein 5.0 L (6.3-8.2) g/dL Albumin 2.1 L (3.5-5.0) g/dL 01/01/17 01/01/17 Range/Units 04:55 07:28 WBC (3.8-10.6) k/uL Neutrophils # (Manual) (1.3-7.7) k/uL Lymphocytes # (Manual) (1.0-4.8) k/uL ABG pH 7.22 L (7.35-7.45) ABG pO2 363 H (83-108) mmHg ABG HCO3 14 L (21-25) mmol/L ABG Total CO2 15 L (19-24) mmol/L ABG O2 Saturation 100.0 H (94-97) % Sodium (137-145) mmol/L Potassium (3.5-5.1) mmol/L Carbon Dioxide (22-30) mmol/L BUN (7-17) mg/dL Creatinine (0.52-1.04) mg/dL Glucose (74-99) mg/dL Plasma Lactic Acid Parish 2.4 H* (0.7-2.0) mmol/L Calcium (8.4-10.2) mg/dL AST (14-36) U/L ALT (9-52) U/L Troponin I (0.000-0.034) ng/mL Total Protein (6.3-8.2) g/dL Albumin (3.5-5.0) g/dL Assessment and Plan Plan: This is an 81-year-old female who presented to the hospital after she was found unresponsive, hypotension and bradycardic with tachypnea with signs of multi-organ failure. Patient presented with acute respiratory failure requiring intubation and mechanical ventilation, acute kidney injury, shock liver, rhabdomyolysis, elevated troponin. Patient has been started on vasopressor. She is status post IV fluids, sodium bicarb, vitamin K, calcium gluconate, hydrocortisone. She was given 1 dose of ceftriaxone and 1 dose of Azactam and is currently on Levaquin which will be continued for now. Patient also presented with hypothermia with temperature of 80 rectally and has been warmed now to a temperature of 96.4 rectally. Patient's prognosis is very poor at this point would recommend consult to hospice care for informational meeting. Case has been discussed with social work. Further recommendations as patient progresses. The above dictated assessment and findings were discussed with Dr. Ferrer. The impression and plan of care have been directed as dictated. Viki Vyas nurse practitioner acting as scribe for Dr. Ferrer. Time with Patient: Greater than 30
--- NOTE | 2017-01-01 11:06 | P.HPIM ---
History of Present Illness H&P Date: 01/01/17 Chief Complaint: Unresponsive This is an 81-year-old female patient of Dr. Pola Love with a past medical history of gastroesophageal reflux disease, breast cancer status post right mastectomy, mitral valve prolapse, polio at age 15, varicose veins, hypertension. She was apparently found at her home on the toilet unresponsive hypotensive, bradycardic and tachypneic. She had noted mottling at the time and was brought into the hospital by EMS. Patient apparently had not been heard from for 3-4 days prior to this. In the emergency center she was noted to not have reflexes she has a stage III decubitus ulcer in the back of her legs , lower back and buttocks. Central line was placed and patient was intubated. She did have a temporary pacemaker for heart rate running in the 30s. She presented with severe acidosis, electrolyte abnormalities, acute renal failure, rhabdomyolysis, elevated liver function tests. She underwent a chest x-ray that showed pulmonary vascular congestion, left perihilar and lower lobe infiltrates may reflect pulmonary edema or possible pneumonia. CAT scan of the abdomen and pelvis showed left lower lobe consolidation, possible cholecystitis , possible focal ileus or some partial small bowel obstruction, cellulitis of the left buttocks, severe L1 compression fracture. She has continued to be hypotensive despite IV fluid resuscitation and started on norepinephrine and admitted to the intensive care unit. INR was also elevated at greater than tens and she is status post vitamin K. No urine output Consults requested with steeplechase jockey, general surgery, nephrology and cardiology. Only living relative is her brother that lives an hour away and has no transportation until this evening. Review of Systems ROS unobtainable: due to endotracheal tube, due to mental status Past Medical History Past Medical History: Cancer, GERD/Reflux, Hypertension, Mitral Valve Prolapse ( MVP) Additional Past Medical History / Comment(s): POLIO AGE 15, BREAST CANCER, VARICOSE VEINS History of Any Multi-Drug Resistant Organisms: None Reported Past Surgical History: Adenoidectomy, Breast Surgery, Hysterectomy, Tonsillectomy Past Anesthesia/Blood Transfusion Reactions: Motion Sickness, Postoperative Nausea & Vomiting (PONV) Past Psychological History: No Psychological Hx Reported Smoking Status: Never smoker Past Alcohol Use History: Unable to Obtain Past Drug Use History: Unable to Obtain - Past Family History Mother Family Medical History: Cancer Additional Family Medical History / Comment(s): COLON CANCER Brother(s) Family Medical History: Deep Vein Thrombosis (DVT) Additional Family Medical History / Comment(s): PULMONARY EMBOLISM Medications and Allergies Home Medications Medication Instructions Recorded Confirmed Type Diazepam [Valium] 5 mg PO HS PRN 06/24/14 01/01/17 History Atenolol [Atenolol] 25 mg PO DAILY 01/01/17 01/01/17 History Flecainide Acetate [Flecainide 50 mg PO Q12H 01/01/17 01/01/17 History Acetate] Omeprazole 20 mg PO DAILY 01/01/17 01/01/17 History Warfarin Sodium [Warfarin Sodium] 2.5 mg PO DAILY 01/01/17 01/01/17 History metroNIDAZOLE [Flagyl] 500 mg PO TID 01/01/17 01/01/17 History Allergies Allergy/AdvReac Type Severity Reaction Status Date / Time aspirin Allergy Abdominal Verified 01/01/17 08:18 Pain Penicillins Allergy Rash/Hives Verified 01/01/17 08:18 Physical Exam Vitals: Vital Signs Temp Pulse Resp BP Pulse Ox 01/01/17 07:45 94 12 143/68 99 01/01/17 07:30 96 29 H 98 01/01/17 07:15 93 31 H 92/40 99 01/01/17 07:00 100 30 H 144/65 99 01/01/17 06:45 99 33 H 100 01/01/17 06:30 90 29 H 115/52 99 01/01/17 06:20 82 16 99 01/01/17 06:10 79 16 99 01/01/17 06:00 92.4 F L 76 16 99 01/01/17 05:50 74 23 100 01/01/17 05:09 91.1 F L 69 14 90/41 97 01/01/17 04:40 90.4 F L 67 14 79/37 97 Intake and Output 12/31/16 01/01/17 01/01/17 22:59 06:59 14:59 Intake Total 34.375 Balance 34.375 Intake: Intake, IV Titration 34.375 Amount Norepinephrine 4 mg In 34.375 Sodium Chloride 0.9% 250 ml @ Titrate IV .Q0M [facility] Rx#:[id number] Gen: This is an 81-year-old female. She is intubated and on mechanical ventilation in the ICU bed. She appears to be comfortable. She is not on sedation. She is not able to follow commands. HEENT: Head is atraumatic, normocephalic. Pupils equal, round. Sclerae is anicteric. Mucous membranes of the mouth appear to be intact what can be seen. ET and orogastric tube in place. NECK: Supple. No lymphadenopathy. No thyromegaly. LUNGS: Clear to auscultation. No wheezes or rhonchi. No intercostal retractions. Right-sided mastectomy noted. HEART: Weak heart sounds. No distinct murmur. Unable to palpate radial pulses. Blood pressure is being obtained by Doppler. ABDOMEN: Soft. Bowel sounds are present. No masses. No tenderness. EXTREMITIES: Stage III decubitus ulcers to the back of the patient's legs, buttocks area and lower back. Please see nursing documentation for details. Dressing in place to the left mid pretibial area where an intraosseous line had been placed. Trace pedal edema. Skin lesion to noted to the left forearm and left upper arm. Bilateral feet dusky. NEUROLOGICAL: Patient is unresponsive. Results CBC & Chem 7: 01/01/17 04:55 01/01/17 04:55 Labs: Abnormal Lab Results - Last 24 Hours (Table) 01/01/17 01/01/17 01/01/17 Range/Units 04:55 04:55 04:55 WBC 12.4 H (3.8-10.6) k/uL Neutrophils # (Manual) 11.8 H (1.3-7.7) k/uL Lymphocytes # (Manual) 0.5 L (1.0-4.8) k/uL ABG pH (7.35-7.45) ABG pO2 (83-108) mmHg ABG HCO3 (21-25) mmol/L ABG Total CO2 (19-24) mmol/L ABG O2 Saturation (94-97) % Sodium 134 L (137-145) mmol/L Potassium 6.0 H (3.5-5.1) mmol/L Carbon Dioxide 16 L (22-30) mmol/L BUN 62 H (7-17) mg/dL Creatinine 2.70 H (0.52-1.04) mg/dL Glucose 111 H (74-99) mg/dL Plasma Lactic Acid [place] (0.7-2.0) mmol/L Calcium 6.3 L* (8.4-10.2) mg/dL AST 731 H (14-36) U/L ALT 235 H (9-52) U/L Troponin I 0.876 H* (0.000-0.034) ng/mL Total Protein 5.0 L (6.3-8.2) g/dL Albumin 2.1 L (3.5-5.0) g/dL 01/01/17 01/01/17 Range/Units 04:55 07:28 WBC (3.8-10.6) k/uL Neutrophils # (Manual) (1.3-7.7) k/uL Lymphocytes # (Manual) (1.0-4.8) k/uL ABG pH 7.22 L (7.35-7.45) ABG pO2 363 H (83-108) mmHg ABG HCO3 14 L (21-25) mmol/L ABG Total CO2 15 L (19-24) mmol/L ABG O2 Saturation 100.0 H (94-97) % Sodium (137-145) mmol/L Potassium (3.5-5.1) mmol/L Carbon Dioxide (22-30) mmol/L BUN (7-17) mg/dL Creatinine (0.52-1.04) mg/dL Glucose (74-99) mg/dL Plasma Lactic Acid Parish 2.4 H* (0.7-2.0) mmol/L Calcium (8.4-10.2) mg/dL AST (14-36) U/L ALT (9-52) U/L Troponin I (0.000-0.034) ng/mL Total Protein (6.3-8.2) g/dL Albumin (3.5-5.0) g/dL Thrombosis Risk Factor Assmnt - DVT/VTE Prophylaxis DVT/VTE Prophylaxis: Mechanical Prophylaxis ordered Assessment and Plan Plan: 1. Multi-organ failure with due to severe hypotension, hypothermia with bradycardia with severe acidosis and rhabdomyolysis along with possible sepsis and possible left lower lobe pneumonia. Patient has been admitted to the intensive care unit. Dr. Head is on-call for intensive care management. Dr. Ferrer input has been appreciated. Cardiology, nephrology and general surgery is also on consult. Continue sepsis protocol. 2. Acute hypoxic and hypercapnic respiratory respiratory failure requiring intubation and mechanical ventilation. Dr. Head is managing. 3. Acute kidney injury and rhabdomyolysis and severe acidosis. Continue IV fluids. Nephrology is on consult. Continue to monitor kidney function and CK. 4. Severe sepsis with septic shock and hypovolemic shock secondary to extended immobilization with large stage III decubitus ulcer with extensive cellulitis and possible left lower lobe pneumonia. 5. Possible cholecystitis. Consult with general surgeon. 6. Possible ileus or partial small bowel obstruction. NG tube is in place. General surgeon on consult. 7. Shock liver with elevated liver function tests secondary to hypo-tension. Patient is status post a vitamin K 8. Hypercoagulopathy secondary to Coumadin use and shock liver status post vitamin K. Coumadin discontinued. 9. DVT prophylaxis. No heparin due to elevated INR. 10. Acute metabolic encephalopathy possible anoxic encephalopathy cannot rule out CVA. Consult with neurology and EEG ordered.. Prognosis is very guarded. Consult with hospice for informational meeting. CODE STATUS no code Hospice consult Patient will be admitted to the hospital for a minimum of 2 night stay. Impression and plan of care have been directed as dictated by the signing physician. Viki Vyas nurse practitioner acting as scribe for signing physician. Time with Patient: Greater than 30
--- NOTE | 2017-01-01 11:25 | P.CNPUL ---
History of Present Illness Consult date: 01/01/17 Requesting physician: Kathi Solomon Reason for consult: other (ICU management) Chief complaint: Unresponsive History of present illness: This is an 81-year-old female with history of hypertension, mitral valve prolapse, GERD, breast cancer, primarily a patient of Dr. Pola Love, found at home unresponsive on the toilet seat, she was hypotensive bradycardic and tachypneic upon EMS arrival. Family members apparently have not heard from the patient in the last 3 or 4 days, has been requested a close friend to go check on her, and he found the patient on the toilet seat unresponsive. Patient was intubated in the ER, and a left subclavian central line was placed. She was temporarily paced, received the fluid boluses, required placement on norepinephrine, and she is presently on 28 g of epinephrine. Multiple abnormalities were noted on her labs including abdomen mild lysis, acute renal failure, electrolyte abnormalities, severe metabolic acidosis, and abnormal liver enzymes. Chest x-ray showed a questionable left perihilar and left lower lobe infiltrate, likely suggestive of pneumonia. Increased interstitial markings were also noted. At any rate, patient received significant fluid boluses at least 2 L in the ER, and she was admitted to the intensive care unit on mechanical ventilation, and on norepinephrine drip. CT of the abdomen and pelvis showed left lower lobe consolidation, possible cholecystitis, focal ileus , and small bowel obstruction possibility was also entertained. In the ER the patient was noted to have significant markings on the skin from sitting for a long period of time on the toilet seat, cellulitis of buttocks and back were noted. INR was also noted to be elevated. Antibiotics padilla, patient was placed empirically on Levaquin, she received initially aztreonam in the ER. Review of Systems Patient is a poor historian, review of systems cannot be obtained. Past Medical History Past Medical History: Cancer, GERD/Reflux, Hypertension, Mitral Valve Prolapse ( MVP) Additional Past Medical History / Comment(s): POLIO AGE 15, BREAST CANCER, VARICOSE VEINS History of Any Multi-Drug Resistant Organisms: None Reported Past Surgical History: Adenoidectomy, Breast Surgery, Hysterectomy, Tonsillectomy Past Anesthesia/Blood Transfusion Reactions: Motion Sickness, Postoperative Nausea & Vomiting (PONV) Past Psychological History: No Psychological Hx Reported Smoking Status: Never smoker Past Alcohol Use History: Unable to Obtain Past Drug Use History: Unable to Obtain - Past Family History Mother Family Medical History: Cancer Additional Family Medical History / Comment(s): COLON CANCER Brother(s) Family Medical History: Deep Vein Thrombosis (DVT) Additional Family Medical History / Comment(s): PULMONARY EMBOLISM Medications and Allergies Home Medications Medication Instructions Recorded Confirmed Type Diazepam [Valium] 5 mg PO HS PRN 06/24/14 01/01/17 History Atenolol [Atenolol] 25 mg PO DAILY 01/01/17 01/01/17 History Flecainide Acetate [Flecainide 50 mg PO Q12H 01/01/17 01/01/17 History Acetate] Omeprazole 20 mg PO DAILY 01/01/17 01/01/17 History Warfarin Sodium [Warfarin Sodium] 2.5 mg PO DAILY 01/01/17 01/01/17 History metroNIDAZOLE [Flagyl] 500 mg PO TID 01/01/17 01/01/17 History Allergies Allergy/AdvReac Type Severity Reaction Status Date / Time aspirin Allergy Abdominal Verified 01/01/17 08:18 Pain Penicillins Allergy Rash/Hives Verified 01/01/17 08:18 Physical Exam Vitals: Vital Signs Temp Pulse Resp BP Pulse Ox 01/01/17 10:15 100 19 123/85 99 01/01/17 10:00 103 H 23 118/81 99 01/01/17 09:45 102 H 24 122/70 100 01/01/17 09:30 97 22 138/74 100 01/01/17 09:15 95 16 119/70 99 01/01/17 09:00 96.4 F L 105 H 22 118/72 95 01/01/17 08:45 105 H 27 H 106/65 99 01/01/17 08:30 101 H 21 107/78 99 01/01/17 08:15 95 20 145/66 96 01/01/17 08:00 92 16 145/66 99 01/01/17 07:45 94 12 143/68 99 01/01/17 07:30 96 29 H 98 01/01/17 07:15 93 31 H 92/40 99 01/01/17 07:00 100 30 H 144/65 99 01/01/17 06:45 99 33 H 100 01/01/17 06:30 90 29 H 115/52 99 01/01/17 06:20 82 16 99 01/01/17 06:10 79 16 99 01/01/17 06:00 92.4 F L 76 16 99 01/01/17 05:50 74 23 100 01/01/17 05:09 91.1 F L 69 14 90/41 97 01/01/17 04:40 90.4 F L 67 14 79/37 97 Intake and Output 12/31/16 01/01/17 01/01/17 22:59 06:59 14:59 Intake Total 34.375 2100 Output Total 300 55 Balance -374.912 2251 Intake: Intake, IV Titration 34.375 2100 Amount Calcium Gluconate 1,000 100 mg In Sodium Chloride 0.9 % 100 ml @ 100 mls/hr IVPB ONCE ONE Rx#: [id number] Norepinephrine 4 mg In 34.375 Sodium Chloride 0.9% 250 ml @ Titrate IV .Q0M VIKI Rx#:[id number] Sodium Chloride 0.9% 1, 2000 000 ml @ 999 mls/hr IV . Q1H1M ONE Rx#:[id number] Output: Urine 300 55 Other: Weight 73.028 kg Patient Weight 01/02/17 06:59 Weight 73.028 kg Gen: This is an 81-year-old female. On mechanical ventilation, endotracheal tube is intact.\ HEENT: Head is atraumatic, normocephalic. Pupils equal, round. Sclerae is anicteric. Mucous membranes of the mouth appear to be intact what can be seen. NECK: Supple. No lymphadenopathy. No thyromegaly. Endotracheal tube seems to be intact. LUNGS: Clear to auscultation. No wheezes or rhonchi. No intercostal retractions. Right-sided mastectomy noted. Cardiac: Distant S1 and S2, no gallops. Abdomen: Soft nontender no megaly no rebound no guarding. Extremities stage III decubitus ulcers noted to the back of the patient legs buttocks and lower back, patient has significant markings from the toilet seat on the back and buttock area. Trace of bipedal edema was noted. Neurologic: Patient opens eyes, does not follow any instructions. Results - Laboratory Findings CBC and BMP: 01/01/17 04:55 01/01/17 04:55 ABG ABG pH 7.22 (7.35-7.45) L 01/01/17 07:28 ABG pCO2 36 mmHg (35-45) 01/01/17 07:28 ABG pO2 363 mmHg (83-108) H 01/01/17 07:28 ABG O2 Saturation 100.0 % (94-97) H 01/01/17 07:28 PT/INR, D-dimer PT >130.0 sec (9.0-12.0) H 01/01/17 00:20 INR >10.0 (<1.1) H* 01/01/17 00:20 Abnormal lab findings: Abnormal Labs 01/01/17 01/01/17 01/01/17 04:55 04:55 04:55 WBC 12.4 H Neutrophils # (Manual) 11.8 H Lymphocytes # (Manual) 0.5 L ABG pH ABG pO2 ABG HCO3 ABG Total CO2 ABG O2 Saturation Sodium 134 L Potassium 6.0 H Carbon Dioxide 16 L BUN 62 H Creatinine 2.70 H Glucose 111 H Plasma Lactic Acid Parish Calcium 6.3 L* AST 731 H ALT 235 H Troponin I 0.876 H* Total Protein 5.0 L Albumin 2.1 L 01/01/17 01/01/17 04:55 07:28 WBC Neutrophils # (Manual) Lymphocytes # (Manual) ABG pH 7.22 L ABG pO2 363 H ABG HCO3 14 L ABG Total CO2 15 L ABG O2 Saturation 100.0 H Sodium Potassium Carbon Dioxide BUN Creatinine Glucose Plasma Lactic Acid Parish 2.4 H* Calcium AST ALT Troponin I Total Protein Albumin - Diagnostic Findings Chest x-ray: image reviewed Assessment and Plan Plan: Impression: Acute hypoxic respiratory failure, multifactorial, however mostly secondary to severe and profound hypotension on presentation, along with hypothermia, bradycardia, and multi system organ failure. Possible sepsis and septic shock secondary to left lower lobe and left perihilar pneumonia, possibility of aspiration is considered especially after reviewing the chest x-ray, and I believe there is a limited infiltrate also in the right lower lobe. Multisystem organ failure including kidney and hepatic injury/shock liver as noted from abnormal labs on presentation. Possible cholecystitis as noted on the CT of the abdomen and pelvis Coumadin related coagulopathy and significantly elevated INR patient did receive vitamin K in the ER, and Coumadin is presently on hold. Cellulitis of the skin and skin markings from prolonged sitting in the toilet seat Recommendation: Continue present supportive care measures, mechanical ventilation, empiric antibiotics, nutritional support, hemodynamic support, GI and DVT prophylaxis, addressed the different abnormalities in the labs accordingly, and we'll continue to follow. Prognosis is definitely poor and guarded, and mortality is considered high considering her multisystem organ failure presentation. Discussed her condition with the nurses taking care of the patient, and we'll discuss her issue with family today. Time with Patient: Greater than 30
[2017-01-01] MEDS ORDERED: SODIUM CHLORIDE 0.45% 1,000 ML with SODIUM BICARB (1 MEQ/ML) 50 ML IV SCH ×2 (11:30)
[2017-01-01] MEDS: IPRATROPIUM-ALBUTEROL 3 ML NEB INHALATION SCH ×2 (12:42→16:38)
--- NOTE | 2017-01-01 14:13 | CONS ---
DATE OF CONSULTATION: 01/01/2017 HISTORY OF PRESENT ILLNESS: Patient is an 81-year-old white female who was found at home unresponsive after her brother called the police as he has not heard from her for about 4 days. Patient was actually sitting on the commode and her head was ( ) and it appears that she had been in that position for about 2 days. She has wounds on her back and in the upper thighs. She was hypotensive and was intubated in the ER. Currently patient is maintained on 35 mcg of Levophed. She has received multiple fluid boluses and is running another fluid bolus right now. She has had some urine output, serum creatinine was at 3.1 mg/dL on initial admission. It is now at 2.7. Patient was also hyperkalemic with a potassium of 6.0. The pH was 7.07 on initial admission into the ER. I do not have any previous labs for comparison at this time. Home medications included atenolol, flecainide, Flagyl, Coumadin, omeprazole, Valium. Allergies include ASPIRIN, PENICILLIN. PAST MEDICAL HISTORY: Gastroesophageal reflux disease, hypertension, history of mitral valve prolapse, history of breast cancer, varicose veins, history of polio at the age of 15. PAST SURGICAL HISTORY: Adenoidectomy, breast surgery, hysterectomy, tonsillectomy. Social history is negative for smoking, drug abuse or alcohol abuse. Review of systems cannot be obtained. Patient is sedated. On examination, currently patient is sedated on the vent. Blood pressure is 119/70, heart rate 109 per minute. She is afebrile. Examination of the heart, S1 and S2. Examination of the lungs, bilateral breath sounds are heard. Abdomen is soft, nontender. Examination of lower extremities shows no significant edema. Wounds are noted in the upper thighs in the medial aspect. Patient has a wounds on the back too, which I did not examine at this time. Labs show sodium of 134, potassium 6.0, chloride 107, CO2 of 16, BUN 62, creatinine 2.7, calcium 6.3. Lactic acid was elevated at 2.4. Initial reading was 7.1. ASSESSMENT: 1. Acute kidney injury secondary to hypotension, hypoperfusion, acute tubular necrosis, currently nonoliguric. No nephrotoxic agents on board at this time. Continue with aggressive IV fluid resuscitation. 2. Metabolic acidosis secondary to lactic acidosis, hypoperfusion. Patient has been started on a bicarb drip. She has a half-normal saline with one amp of sodium bicarb running at 100 mL an hour, which we can continue. 3. Hyperkalemia associated with acute kidney injury, metabolic acidosis. 4. Rhabdomyolysis with CK level of 12,000 on initial admission. 5. Respiratory failure, currently ventilator-dependent. PLAN: Repeat labs this afternoon. Continue with the bicarb drip. Continue IV fluids, try to wean pressors. Patient did receive one dose of hydrocortisone for possible adrenal insufficiency. Thank you for this consultation. Will continue to follow the patient with you during her hospitalization.
[2017-01-01] MEDS ORDERED: DOPamine DRIP 800 MG in DEXTROSE/WATER 1 500ML.BAG IV SCH (14:30)
[2017-01-01] MEDS ORDERED: DOPamine DRIP 500 ML IV ONE (14:41)
[2017-01-01] MEDS ORDERED: LORazepam 2 MG/ML SYRINGE IV PRN (15:31)
[2017-01-01] MEDS ORDERED: MORPHINE SULFATE 2 MG/ML SYRINGE IVP PRN (15:31)
[2017-01-01] MEDS ORDERED: HEPARIN SODIUM,PORCINE 5,000 UNIT/ML 1 ML VIAL SQ SCH (16:00)
--- NOTE | 2017-01-01 16:17 | P.GSCN ---
History of Present Illness Consult date: 01/01/17 Reason for Consult: Cholecystitis History of present illness: This 81-year-old female who was admitted through the emergency room. Apparently the patient was found on a commode chair. It is unclear how long she had been on the commode chair. The patient was admitted to the ICU she was intubated for sepsis. Patient's family has elected to make her Comfort Care. Past Medical History Past Medical History: Cancer, GERD/Reflux, Hypertension, Mitral Valve Prolapse ( MVP) Additional Past Medical History / Comment(s): POLIO AGE 15, BREAST CANCER, VARICOSE VEINS History of Any Multi-Drug Resistant Organisms: None Reported Past Surgical History: Adenoidectomy, Breast Surgery, Hysterectomy, Tonsillectomy Past Anesthesia/Blood Transfusion Reactions: Motion Sickness, Postoperative Nausea & Vomiting (PONV) Past Psychological History: No Psychological Hx Reported Smoking Status: Never smoker Past Alcohol Use History: Unable to Obtain Past Drug Use History: Unable to Obtain - Past Family History Mother Family Medical History: Cancer Additional Family Medical History / Comment(s): COLON CANCER Brother(s) Family Medical History: Deep Vein Thrombosis (DVT) Additional Family Medical History / Comment(s): PULMONARY EMBOLISM Medications and Allergies Home Medications Medication Instructions Recorded Confirmed Type Diazepam [Valium] 5 mg PO HS PRN 06/24/14 01/01/17 History Atenolol [Atenolol] 25 mg PO DAILY 01/01/17 01/01/17 History Flecainide Acetate [Flecainide 50 mg PO Q12H 01/01/17 01/01/17 History Acetate] Omeprazole 20 mg PO DAILY 01/01/17 01/01/17 History Warfarin Sodium [Warfarin Sodium] 2.5 mg PO DAILY 01/01/17 01/01/17 History metroNIDAZOLE [Flagyl] 500 mg PO TID 01/01/17 01/01/17 History Allergies Allergy/AdvReac Type Severity Reaction Status Date / Time aspirin Allergy Abdominal Verified 01/01/17 08:18 Pain Penicillins Allergy Rash/Hives Verified 01/01/17 08:18 Surgical - Exam Vital Signs Pulse Resp 67 12 01/01/17 00:09 01/01/17 00:09 - General Patient is intubated on ventilator - Respiratory normal expansion - Cardiovascular Rhythm: regular - Abdomen Abdomen soft and mildly distended Results - Labs 01/01/17 04:55 01/01/17 04:55 Abnormal Lab Results - Last 24 Hours (Table) 01/01/17 01/01/17 01/01/17 Range/Units 04:55 04:55 04:55 WBC 12.4 H (3.8-10.6) k/uL Neutrophils # (Manual) 11.8 H (1.3-7.7) k/uL Lymphocytes # (Manual) 0.5 L (1.0-4.8) k/uL ABG pH (7.35-7.45) ABG pO2 (83-108) mmHg ABG HCO3 (21-25) mmol/L ABG Total CO2 (19-24) mmol/L ABG O2 Saturation (94-97) % Sodium 134 L (137-145) mmol/L Potassium 6.0 H (3.5-5.1) mmol/L Carbon Dioxide 16 L (22-30) mmol/L BUN 62 H (7-17) mg/dL Creatinine 2.70 H (0.52-1.04) mg/dL Glucose 111 H (74-99) mg/dL Plasma Lactic Acid Parish (0.7-2.0) mmol/L Calcium 6.3 L* (8.4-10.2) mg/dL AST 731 H (14-36) U/L ALT 235 H (9-52) U/L Troponin I 0.876 H* (0.000-0.034) ng/mL Total Protein 5.0 L (6.3-8.2) g/dL Albumin 2.1 L (3.5-5.0) g/dL 01/01/17 01/01/17 Range/Units 04:55 07:28 WBC (3.8-10.6) k/uL Neutrophils # (Manual) (1.3-7.7) k/uL Lymphocytes # (Manual) (1.0-4.8) k/uL ABG pH 7.22 L (7.35-7.45) ABG pO2 363 H (83-108) mmHg ABG HCO3 14 L (21-25) mmol/L ABG Total CO2 15 L (19-24) mmol/L ABG O2 Saturation 100.0 H (94-97) % Sodium (137-145) mmol/L Potassium (3.5-5.1) mmol/L Carbon Dioxide (22-30) mmol/L BUN (7-17) mg/dL Creatinine (0.52-1.04) mg/dL Glucose (74-99) mg/dL Plasma Lactic Acid Parish 2.4 H* (0.7-2.0) mmol/L Calcium (8.4-10.2) mg/dL AST (14-36) U/L ALT (9-52) U/L Troponin I (0.000-0.034) ng/mL Total Protein (6.3-8.2) g/dL Albumin (3.5-5.0) g/dL Diabetes panel 01/01/17 Range/Units 04:55 Sodium 134 L (137-145) mmol/L Potassium 6.0 H (3.5-5.1) mmol/L Chloride 107 (98-107) mmol/L Carbon Dioxide 16 L (22-30) mmol/L BUN 62 H (7-17) mg/dL Creatinine 2.70 H (0.52-1.04) mg/dL Glucose 111 H (74-99) mg/dL Calcium 6.3 L* (8.4-10.2) mg/dL AST 731 H (14-36) U/L ALT 235 H (9-52) U/L Alkaline Phosphatase 119 (38-126) U/L Total Protein 5.0 L (6.3-8.2) g/dL Albumin 2.1 L (3.5-5.0) g/dL Calcium panel 01/01/17 Range/Units 04:55 Calcium 6.3 L* (8.4-10.2) mg/dL Albumin 2.1 L (3.5-5.0) g/dL Pituitary panel 01/01/17 Range/Units 04:55 Sodium 134 L (137-145) mmol/L Potassium 6.0 H (3.5-5.1) mmol/L Chloride 107 (98-107) mmol/L Carbon Dioxide 16 L (22-30) mmol/L BUN 62 H (7-17) mg/dL Creatinine 2.70 H (0.52-1.04) mg/dL Glucose 111 H (74-99) mg/dL Calcium 6.3 L* (8.4-10.2) mg/dL Adrenal panel 01/01/17 Range/Units 04:55 Sodium 134 L (137-145) mmol/L Potassium 6.0 H (3.5-5.1) mmol/L Chloride 107 (98-107) mmol/L Carbon Dioxide 16 L (22-30) mmol/L BUN 62 H (7-17) mg/dL Creatinine 2.70 H (0.52-1.04) mg/dL Glucose 111 H (74-99) mg/dL Calcium 6.3 L* (8.4-10.2) mg/dL Total Bilirubin 0.5 (0.2-1.3) mg/dL AST 731 H (14-36) U/L ALT 235 H (9-52) U/L Alkaline Phosphatase 119 (38-126) U/L Total Protein 5.0 L (6.3-8.2) g/dL Albumin 2.1 L (3.5-5.0) g/dL Assessment and Plan Plan: The patient will be made comfort care. No surgical intervention is planned. We will sign off.
[2017-01-01 16:45] VITALS: BP 84/00; RESP 30; TEMP 97.6
[2017-01-01 17:15] VITALS: PULSE 101
--- NOTE | 2017-01-01 22:03 | P.CON ---
Consult Note - . Consult date: 01/01/17 Assessment/Plan:: This is an 81-year-old female who was apparently found at her home on the toilet unresponsive hypotensive, bradycardic and tachypneic. She had noted mottling at the time and was brought into the hospital by EMS. Patient apparently had not been heard from for 3-4 days prior to this. In the emergency center she was noted to not have reflexes she has a stage III decubitus ulcer in the back of her legs, lower back and buttocks. Central line was placed and patient was intubated. She did have a temporary pacemaker for heart rate running in the 30s. She presented with severe acidosis, electrolyte abnormalities, acute renal failure, rhabdomyolysis, elevated liver function tests. She underwent a chest x-ray that showed pulmonary vascular congestion, left perihilar and lower lobe infiltrates may reflect pulmonary edema or possible pneumonia. CAT scan of the abdomen and pelvis showed left lower lobe consolidation, possible cholecystitis, possible focal ileus or some partial small bowel obstruction, cellulitis of the left buttocks, severe L1 compression fracture. She has continued to be hypotensive despite IV fluid resuscitation and started on norepinephrine and admitted to the intensive care unit. INR was also elevated at greater than 10 and she is status post vitamin K. No urine output this morning. Consults requested with english division chair, general surgery, nephrology and cardiology. Only living relative is her brother that lives an hour away and has no transportation until this evening. Please see the consult note is dictated by nurse practitioner Mrs. Viki Vyas In the consult was called conversation occurred with the nursing staff. The patient has multisystem organ failure and profound tissue damage. She has acidosis. Given the situation her mortality is in excess of 90%. With this situation she would best placed in the hospice. The family to become involved as the day progressed she "will be placed in the hospice. Certainly help provide any further care for spitting ulcers if needed. I agree with evaluation , assessment and plan is dictated by nurse practitioner Mrs. Viki Vyas.
--- NOTE | 2017-01-01 23:06 | CONS ---
DATE OF CONSULTATION: This is an 81-year-old elderly lady who was found unresponsive sitting on a toilet seat. Apparently she has rhabdomyolysis, elevated troponin. I was asked to see her in this regard. Overall prognosis for this lady appears to be quite poor, and we are also considering hospice. After she was found unresponsive, she was intubated on site and brought in. Her EKG initially revealed wide QRS rhythm. Now she is in narrow QRS rhythm with a sinus mechanism. She has rhabdomyolysis. I am recommending some additional bicarbonate. I am also asking that we use some subcutaneous heparin for this lady as well. Her troponin rise does not really represent myocardial injury. Apparently this patient was intubated on site; we do not know how long she was down. She appeared to be hypotensive and bradycardic with wide QRS tachycardia when she came in; however, her prognosis appears to be quite poor. Her last blood pressure is in the 80s. She has received some amps of bicarb and she is on a ventilator being sedated. Her blood pressure appears to be low and she is on high-dose pressors. Physical exam revealed that patient is unresponsive. S1, S2 heard normally. Lungs reveal diminished air entry. Abdomen and lower extremity exam was unremarkable. Patient has been placed on a Levophed drip for quite some time along with bicarb. Overall prognosis for this patient is poor, and she is being considered for hospice care. I will therefore not be actively participating in the care of this patient.
[2017-01-02] MEDS ORDERED: LEVOFLOXACIN 750MG-D5W PMX 750 MG in DEXTROSE/WATER 1 150ML.BAG IVPB SCH (09:00)
[2017-01-02] MEDS ORDERED: FAMOTIDINE 20 MG/2 ML VIAL IV SCH (09:00)
[2017-01-02] MEDS ORDERED: LEVOFLOXACIN 500MG-D5W PMX 500 MG in DEXTROSE/WATER 1 100ML.BAG IVPB SCH (09:00)
--- NOTE | 2017-01-02 10:29 | ECHOF ---
Referral Reason:elevated troponin MEASUREMENTS -------- HEIGHT: 162.6 cm WEIGHT: 73.0 kg BP: 123/85 RVIDd: 2.9 cm (< 3.3) IVSd: 1.3 cm (0.6 - 1.1) LVIDd: 3.0 cm (3.9 - 5.3) LVPWd: 1.1 cm (0.6 - 1.1) IVSs: 1.6 cm LVIDs: 2.2 cm LVPWs: 1.2 cm LA Diam: 2.6 cm (2.7 - 3.8) LAESV Index (A-L): 12.11 ml/m Ao Diam: 2.9 cm (2.0 - 3.7) AV Cusp: 1.6 cm (1.5 - 2.6) LA Diam: 2.6 cm (2.7 - 3.8) MV EXCURSION: 14.230 mm (> 18.000) MV EF SLOPE: 102 mm/s (70 - 150) EPSS: 0.5 cm MV E Norris: 0.71 m/s MV DecT: 102 ms MV A Norris: 0.30 m/s MV E/A Ratio: 2.40 AR PHT: 461 ms RAP: 5.00 mmHg RVSP: 34.20 mmHg FINDINGS -------- Resting tachycardia (HR>100bpm). This was a technically good study. There is mild concentric left ventricular hypertrophy. There is moderate global hypokinesis of LV . Overall left ventricular systolic function is moderately impaired with, an EF between 35 - 40 %. The right ventricle is normal in size. Normal LA size by volume 22+/-6 ml/m2. The right atrium is normal in size. Aortic valve is trileaflet and is mildly thickened. There is [id number] aortic regurgitation. The mitral valve leaflets are mildly thickened. Mild mitral annular calcification present. Mild mitral regurgitation is present. Moderate tricuspid regurgitation present. The right ventricular systolic pressure, as measured by Doppler, is 34.20mmHg. Pulmonic valve appears structurally normal. The aortic root size is normal. Normal inferior vena cava with normal inspiratory collapse consistent with estimated right atrial pressure of 5 mmHg. There is a small, generalized pericardial effusion present. CONCLUSIONS -------- 1. Resting tachycardia (HR>100bpm). 2. The mitral valve leaflets are mildly thickened. 3. Mild mitral annular calcification present. 4. Mild mitral regurgitation is present. 5. Moderate tricuspid regurgitation present. 6. The right ventricular systolic pressure, as measured by Doppler, is 34.20mmHg. 7. Pulmonic valve appears structurally normal. 8. The aortic root size is normal. 9. Normal inferior vena cava with normal inspiratory collapse consistent with estimated right atrial pressure of 5 mmHg. 10. There is a small, generalized pericardial effusion present. 11. This was a technically good study. 12. There is mild concentric left ventricular hypertrophy. 13. Overall left ventricular systolic function is moderately impaired with, an EF between 35 - 40 %. 14. The right ventricle is normal in size. 15. Normal LA size by volume 22+/-6 ml/m2. 16. The right atrium is normal in size. 17. Aortic valve is trileaflet and is mildly thickened. 18. There is [id number] aortic regurgitation. [employer] SUPERVISOR: Carmel Kothari RDCS
--- NOTE | 2017-01-02 15:32 | P.DS ---
Providers Date of admission: 01/01/17 04:35 Expected date of discharge: 01/01/17 Attending physician: Kathi Solomon Consults: 01/01/17 04:38 Consult Physician Routine Consulting Provider: Manuela Van Consult Reason/Comments: renal failure Do you want consulting provider notified?: Yes Consult Physician Stat Consulting Provider: Karen Head Consult Reason/Comments: Critical care Do you want consulting provider notified?: Already Contacted 01/01/17 04:39 Consult Physician Routine Consulting Provider: Deb Tapia Consult Reason/Comments: elevated troponin. Do you want consulting provider notified?: Yes 01/01/17 05:51 Consult Physician Urgent Consulting Provider: Daniel Hernandez Consult Reason/Comments: Possible cholecystitis Do you want consulting provider notified?: Already Contacted 01/01/17 08:07 Consult Physician Routine Consulting Provider: Mike Ferrer Consult Reason/Comments: wounds Do you want consulting provider notified?: Yes, Notify in am 01/01/17 12:33 Consult Physician Routine Consulting Provider: Zain Whitley Consult Reason/Comments: encephalopathy Do you want consulting provider notified?: Yes Primary care physician: [facility] Hospital Course: This is an 81-year-old female patient of Dr. Pola Love with a past medical history of gastroesophageal reflux disease, breast cancer status post right mastectomy, mitral valve prolapse, polio at age 15, varicose veins, hypertension. She was apparently found at her home on the toilet unresponsive hypotensive, bradycardic and tachypneic. She had noted mottling at the time and was brought into the hospital by EMS. Patient apparently had not been heard from for 3-4 days prior to this. In the emergency center she was noted to not have reflexes she has a stage III decubitus ulcer in the back of her legs , lower back and buttocks. Central line was placed and patient was intubated. She did have a temporary pacemaker for heart rate running in the 30s. She presented with severe acidosis, electrolyte abnormalities, acute renal failure, rhabdomyolysis, elevated liver function tests. She underwent a chest x-ray that showed pulmonary vascular congestion, left perihilar and lower lobe infiltrates may reflect pulmonary edema or possible pneumonia. CAT scan of the abdomen and pelvis showed left lower lobe consolidation, possible cholecystitis , possible focal ileus or some partial small bowel obstruction, cellulitis of the left buttocks, severe L1 compression fracture. She has continued to be hypotensive despite IV fluid resuscitation and started on norepinephrine and admitted to the intensive care unit. INR was also elevated at greater than tens and she is status post vitamin K. No urine output Consults requested with polymerization helper, general surgery, nephrology and cardiology. Only living relative is her brother that lives an hour away and has no transportation until this evening. Patient will be transitioned to [facility] hospice care. Discharge diagnoses: 1. Multi-organ failure with due to severe hypotension, hypothermia with bradycardia with severe acidosis and rhabdomyolysis along with sepsis and possible left lower lobe pneumonia and large decubitus ulcers. 2. Acute hypoxic and hypercapnic respiratory respiratory failure requiring intubation and mechanical ventilation. 3. Acute kidney injury and rhabdomyolysis and severe acidosis. 4. Severe sepsis with septic shock and hypovolemic shock secondary to extended immobilization with large stage III decubitus ulcer with extensive cellulitis and possible left lower lobe pneumonia. 5. Possible cholecystitis. 6. Possible ileus or partial small bowel obstruction. 7. Shock liver with elevated liver function tests secondary to hypo-tension. 8. Hypercoagulopathy secondary to Coumadin use and shock liver status post vitamin K. 9. Acute metabolic encephalopathy possible anoxic encephalopathy cannot rule out CVA. CODE STATUS no code Impression and plan of care have been directed as dictated by the signing physician. Viki Vyas nurse practitioner acting as scribe for signing physician. Patient Condition at Discharge: Undetermined Plan - Discharge Summary Discharge Medication List Diazepam [Valium] 5 mg PO HS PRN 06/24/14 [History] Atenolol [Atenolol] 25 mg PO DAILY 01/01/17 [History] Flecainide Acetate [Flecainide Acetate] 50 mg PO Q12H 01/01/17 [History] Omeprazole 20 mg PO DAILY 01/01/17 [History] Warfarin Sodium [Warfarin Sodium] 2.5 mg PO DAILY 01/01/17 [History] metroNIDAZOLE [Flagyl] 500 mg PO TID 01/01/17 [History] Follow up Appointment(s)/Referral(s): Keron Love MD [Primary Care Provider] - 1-2 days Discharge Disposition: OTHER INSTITUTION NOT DEFINED
== END 2017-01-01 17:24 | disposition hospice, inpatient (51) | DRG 871 ==
LOC: EC 00:07 → 6ICU 04:35
PROVIDERS: ADMIT Family Medicine; ATTEND Family Medicine
PROC: 05H633Z Insertion of Infusion Device into Left Subclavian Vein, Percutaneous Approach (ICD-10-PCS; principal; 2017-01-01)
PROC: 5A1935Z Respiratory Ventilation, Less than 24 Consecutive Hours (ICD-10-PCS; 2017-01-01)
PROC: 0BH18EZ Insertion of Endotracheal Airway into Trachea, Via Natural or Artificial Opening Endoscopic (ICD-10-PCS; 2017-01-01)
DX: A41.9 Sepsis, unspecified organism (principal); R65.21 Severe sepsis with septic shock; N17.0 Acute kidney failure with tubular necrosis; K72.00 Acute and subacute hepatic failure without coma; R57.1 Hypovolemic shock; J18.9 Pneumonia, unspecified organism; G93.41 Metabolic encephalopathy; L89.103 Pressure ulcer of unspecified part of back, stage 3; J96.01 Acute respiratory failure with hypoxia; J96.02 Acute respiratory failure with hypercapnia; K56.60 Unspecified intestinal obstruction; L89.893 Pressure ulcer of other site, stage 3; L89.313 Pressure ulcer of right buttock, stage 3; L89.323 Pressure ulcer of left buttock, stage 3; E87.2 Acidosis; K56.7 Ileus, unspecified; M62.82 Rhabdomyolysis; L03.317 Cellulitis of buttock; E87.5 Hyperkalemia; K81.9 Cholecystitis, unspecified; I83.90 Asymptomatic varicose veins of unspecified lower extremity; Z66 Do not resuscitate; Z51.5 Encounter for palliative care; I10 Essential (primary) hypertension; I34.1 Nonrheumatic mitral (valve) prolapse; R79.1 Abnormal coagulation profile; T45.515A Adverse effect of anticoagulants, initial encounter; K21.9 Gastro-esophageal reflux disease without esophagitis; Z88.0 Allergy status to penicillin; Z88.8 Allergy status to other drugs, medicaments and biological substances; Z85.3 Personal history of malignant neoplasm of breast; Z90.11 Acquired absence of right breast and nipple; Z86.12 Personal history of poliomyelitis; Z90.710 Acquired absence of both cervix and uterus; Z79.01 Long term (current) use of anticoagulants; Z79.899 Other long term (current) drug therapy
CPT/HCPCS: 31500; 36415; 36556; 36600; 51702; 70450; 71010; 74176; 80053; 80306; 81001; 82140; 82550; 82553; 82805; 83605; 84484; 85025; 85610; 85730; 87040; 93005; 93306; 94002; 94640; 96361; 96365; 96366; 96367; 96375; 99152; 99291; 99292

== ENCOUNTER 2017-01-01 17:32 | Inpatient (IN) | payer MEDICAID ==
--- NOTE | 2017-01-02 15:33 | P.HPIM ---
History of Present Illness H&P Date: 01/02/17 This is an 81-year-old female patient of Dr. Pola Love with a past medical history of gastroesophageal reflux disease, breast cancer status post right mastectomy, mitral valve prolapse, polio at age 15, varicose veins, hypertension. She was apparently found at her home on the toilet unresponsive hypotensive, bradycardic and tachypneic. She had noted mottling at the time and was brought into the hospital by EMS. Patient apparently had not been heard from for 3-4 days prior to this. In the emergency center she was noted to not have reflexes she has a stage III decubitus ulcer in the back of her legs , lower back and buttocks. Central line was placed and patient was intubated. She did have a temporary pacemaker for heart rate running in the 30s. She presented with severe acidosis, electrolyte abnormalities, acute renal failure, rhabdomyolysis, elevated liver function tests. She underwent a chest x-ray that showed pulmonary vascular congestion, left perihilar and lower lobe infiltrates may reflect pulmonary edema or possible pneumonia. CAT scan of the abdomen and pelvis showed left lower lobe consolidation, possible cholecystitis , possible focal ileus or some partial small bowel obstruction, cellulitis of the left buttocks, severe L1 compression fracture. She has continued to be hypotensive despite IV fluid resuscitation and started on norepinephrine and admitted to the intensive care unit. INR was also elevated at greater than tens and she is status post vitamin K. No urine output Consults requested with manager mobile, general surgery, nephrology and cardiology. Only living relative is her brother that lives an hour away and has no transportation until this evening. Patient is on [facility] hospice care. Patient on 412. Please see nursing recommendation for details. Discharge diagnoses: 1. Multi-organ failure with due to severe hypotension, hypothermia with bradycardia with severe acidosis and rhabdomyolysis along with sepsis and possible left lower lobe pneumonia and large decubitus ulcers. 2. Acute hypoxic and hypercapnic respiratory respiratory failure requiring intubation and mechanical ventilation. 3. Acute kidney injury and rhabdomyolysis and severe acidosis. 4. Severe sepsis with septic shock and hypovolemic shock secondary to extended immobilization with large stage III decubitus ulcer with extensive cellulitis and possible left lower lobe pneumonia. 5. Possible cholecystitis. 6. Possible ileus or partial small bowel obstruction. 7. Shock liver with elevated liver function tests secondary to hypo-tension. 8. Hypercoagulopathy secondary to Coumadin use and shock liver status post vitamin K. 9. Acute metabolic encephalopathy possible anoxic encephalopathy cannot rule out CVA. CODE STATUS no code Impression and plan of care have been directed as dictated by the signing physician. Viki Vyas nurse practitioner acting as scribe for signing physician. Past Medical History Past Medical History: Cancer, GERD/Reflux, Hypertension, Mitral Valve Prolapse ( MVP) Additional Past Medical History / Comment(s): POLIO AGE 15, BREAST CANCER, VARICOSE VEINS History of Any Multi-Drug Resistant Organisms: None Reported Past Surgical History: Adenoidectomy, Breast Surgery, Hysterectomy, Tonsillectomy Past Anesthesia/Blood Transfusion Reactions: Motion Sickness, Postoperative Nausea & Vomiting (PONV) Past Psychological History: No Psychological Hx Reported Smoking Status: Never smoker Past Alcohol Use History: Unable to Obtain Past Drug Use History: Unable to Obtain - Past Family History Mother Family Medical History: Cancer Additional Family Medical History / Comment(s): COLON CANCER Brother(s) Family Medical History: Deep Vein Thrombosis (DVT) Additional Family Medical History / Comment(s): PULMONARY EMBOLISM Medications and Allergies Home Medications Medication Instructions Recorded Confirmed Type Diazepam [Valium] 5 mg PO HS PRN 06/24/14 01/01/17 History Atenolol [Atenolol] 25 mg PO DAILY 01/01/17 01/01/17 History Flecainide Acetate [Flecainide 50 mg PO Q12H 01/01/17 01/01/17 History Acetate] Omeprazole 20 mg PO DAILY 01/01/17 01/01/17 History Warfarin Sodium [Warfarin Sodium] 2.5 mg PO DAILY 01/01/17 01/01/17 History metroNIDAZOLE [Flagyl] 500 mg PO TID 01/01/17 01/01/17 History Allergies Allergy/AdvReac Type Severity Reaction Status Date / Time aspirin Allergy Abdominal Verified 01/01/17 08:18 Pain Penicillins Allergy Rash/Hives Verified 01/01/17 08:18
== END 2017-01-01 19:47 | disposition expired | DRG 871 ==
LOC: 6ICU 17:32
PROVIDERS: ADMIT Family Medicine; ATTEND Family Medicine
DX: A41.9 Sepsis, unspecified organism (principal); K72.00 Acute and subacute hepatic failure without coma; R57.1 Hypovolemic shock; G93.41 Metabolic encephalopathy; N17.9 Acute kidney failure, unspecified; K56.60 Unspecified intestinal obstruction; L89.103 Pressure ulcer of unspecified part of back, stage 3; J96.01 Acute respiratory failure with hypoxia; J96.02 Acute respiratory failure with hypercapnia; J18.9 Pneumonia, unspecified organism; L89.893 Pressure ulcer of other site, stage 3; R65.21 Severe sepsis with septic shock; L89.323 Pressure ulcer of left buttock, stage 3; L89.313 Pressure ulcer of right buttock, stage 3; E87.2 Acidosis; K56.7 Ileus, unspecified; M62.82 Rhabdomyolysis; L03.90 Cellulitis, unspecified; K81.9 Cholecystitis, unspecified; R79.1 Abnormal coagulation profile; I34.1 Nonrheumatic mitral (valve) prolapse; T45.515A Adverse effect of anticoagulants, initial encounter; Z51.5 Encounter for palliative care; Z66 Do not resuscitate; K21.9 Gastro-esophageal reflux disease without esophagitis; I10 Essential (primary) hypertension; I83.90 Asymptomatic varicose veins of unspecified lower extremity; Z86.12 Personal history of poliomyelitis; Z85.3 Personal history of malignant neoplasm of breast; Z90.11 Acquired absence of right breast and nipple; Z79.01 Long term (current) use of anticoagulants; Z90.710 Acquired absence of both cervix and uterus; Z79.899 Other long term (current) drug therapy